=== PATIENT | male | born 2000 | race Asian ===

== ENCOUNTER 2023-03-30 03:25 | Emergency (ER) | payer OTHER ==
[~2023-03-30] VITALS: Ht 177.8 cm; Wt 63.5 kg
[2023-03-30 03:37] VITALS: BP 112/63; PULSE 78; RESP 78; TEMP 97.9; O2SAT 95
== END 2023-03-30 04:00 ==
LOC: MED 03:25
DX: Z02.89 Encounter for other administrative examinations (principal); V49.88XA Car occupant (driver) (passenger) injured in other specified transport accidents, initial encounter; Y93.89 Activity, other specified; Y92.89 Other specified places as the place of occurrence of the external cause; Y99.8 Other external cause status
CPT/HCPCS: 99283